=== PATIENT | male | born 1955 | race American Indian/Alaskan Native ===

== ENCOUNTER 2022-04-17 04:47 | Emergency (ER) | payer MEDICARE, OTHER ==
[2022-04-17] MEDS ORDERED: Sodium Chloride 0.9% 10 ML Syringe FLUSH PRN (04:51)
[2022-04-17] MEDS ORDERED: Sodium Chloride 0.9% 1,000 ML IV ONE ×2 (05:06→06:00)
[2022-04-17] MEDS ORDERED: Iopamidol 755 Mg/ML 100 ML Bottle IVPUSH ONE (05:26)
[2022-04-17 05:52] LABS: ANION GAP 13.9 mEq/L (7-13); CHLORIDE,CL 102 mmol/L (98-107); ESTIMATED GFR 88 mL/min (>=60); SODIUM,NA 137 mmol/L (136-145)
[2022-04-17] MEDS ORDERED: LORazepam 2 MG/ML SDV IVPUSH ONE (06:55)
[2022-04-17 09:36] LABS: O2 DELIVERY DEVICE NASAL CANNULA
[2022-04-17 09:37] LABS: ALLEN TEST PERFORMED
[2022-04-17 09:38] LABS: BASE EXCESS ARTERIAL -3 mmol/L ((-2)-(+3)); BICARBONATE,ARTERIAL 23.9 mmol/L (22-26); O2 SATURATION ARTERIAL 94 % (95-100); PCO2 ARTERIAL 49 mmHg (35-45); PO2 ARTERIAL 80 mmHg (70-100)
[2022-04-17] MEDS ORDERED: levETIRAcetam in NaCl (iso-os) 1,000 MG in Premix Bag 1 BAG IV ONE ×2 (09:49)
[2022-04-17 09:56] LABS: AMPHETAMINES,URINE NEGATIVE (NEGATIVE); BARBITURATES,URINE NEGATIVE (NEGATIVE); BENZODIAZEPINE,URINE NEGATIVE (NEGATIVE); MDMA (ECSTASY), URINE NEGATIVE (NEGATIVE); METHADONE,URINE NEGATIVE (NEGATIVE); METHAMPHETAMINES,URINE NEGATIVE (NEGATIVE); OPIATES,URINE NEGATIVE (NEGATIVE); OXYCODONE,URINE NEGATIVE (NEGATIVE); PHENCYCLIDINE,URINE NEGATIVE (NEGATIVE); TCA,URINE NEGATIVE (NEGATIVE)
== END 2022-04-17 11:00 | disposition left against medical advice (07) ==
LOC: DL.ED 04:47
DX: R56.9 Unspecified convulsions (principal); R09.02 Hypoxemia; M19.90 Unspecified osteoarthritis, unspecified site; Z20.822 Contact with and (suspected) exposure to COVID-19; Z79.899 Other long term (current) drug therapy; Z79.82 Long term (current) use of aspirin
CPT/HCPCS: 36415; 36600; 70450; 71260; 80053; 80305-QW; 80307; 81003; 82140; 82803; 82947; 83605; 83735; 83880; 84100; 84484; 85025; 85379; 86140; 87040; 93005; 93010; 96361; 96374; 99284; 99285-25; J2060; J3490; J7030; Q9967; U0002

== ENCOUNTER 2022-05-06 10:21 | Emergency (ER) | payer MEDICARE, OTHER ==
[2022-05-06] MEDS ORDERED: levETIRAcetam in NaCl (iso-os) 1,500 MG in Premix Bag 1 BAG IV ONE ×4 (10:22→10:26)
[2022-05-06] MEDS ORDERED: Sodium Chloride 0.9% 10 ML Syringe FLUSH PRN (10:25)
[2022-05-06] MEDS ORDERED: Midazolam 1 MG/ML 2 ML SDV IVPUSH ONE ×2 (10:26→10:27)
[2022-05-06] MEDS ORDERED: Sodium Chloride 0.9% 1,000 ML IV ONE ×2 (10:26→11:39)
[2022-05-06] MEDS ORDERED: Succinylcholine 200 MG/10 ML MDV IV ONE (10:32)
[2022-05-06] MEDS ORDERED: propofoL 100 ML IV ONE (10:32)
[2022-05-06] MEDS ORDERED: Midazolam 50 MG in Sodium Chloride 0.9% 50 ML IV ONE (10:32)
[2022-05-06] MEDS ORDERED: Midazolam 1 MG/ML 2 ML SDV IV ONE (10:32)
[2022-05-06] MEDS ORDERED: Rocuronium 100 MG/10 ML MDV IV ONE (10:32)
[2022-05-06] MEDS ORDERED: Propofol 200 MG/20 ML SDV IV ONE (10:32)
[2022-05-06] MEDS ORDERED: Iopamidol 612 MG/ML 100 ML Bottle IVPUSH ONE (10:35)
[2022-05-06] MEDS ORDERED: fentaNYL 100 MCG/2 ML SDV IV ONE (10:59)
[2022-05-06] MEDS ORDERED: fentaNYL 100 MCG/2 ML SDV ONE (10:59)
[2022-05-06 11:07] LABS: PTT,PARTIAL THROMBOPLSTIN TIME 21.4 SEC (22.0-34.0)
[2022-05-06 11:09] LABS: ANION GAP 16.7 mEq/L (7-13); CHLORIDE,CL 102 mmol/L (98-107); SODIUM,NA 137 mmol/L (136-145)
[2022-05-06 11:16] LABS: ESTIMATED GFR 74 mL/min (>=60)
[2022-05-06] MEDS ORDERED: Midazolam 1 MG/ML 2 ML SDV ONE (11:22)
[2022-05-06 11:41] LABS: AMPHETAMINES,URINE NEGATIVE (NEGATIVE); BARBITURATES,URINE NEGATIVE (NEGATIVE); BENZODIAZEPINE,URINE NEGATIVE (NEGATIVE); MDMA (ECSTASY), URINE NEGATIVE (NEGATIVE); METHADONE,URINE NEGATIVE (NEGATIVE); METHAMPHETAMINES,URINE NEGATIVE (NEGATIVE); OPIATES,URINE NEGATIVE (NEGATIVE); OXYCODONE,URINE NEGATIVE (NEGATIVE); PHENCYCLIDINE,URINE NEGATIVE (NEGATIVE); TCA,URINE NEGATIVE (NEGATIVE)
[2022-05-06 12:54] LABS: RESPIRATORY SYNCYTIAL VIR NAA NEGATIVE (NEGATIVE)
[2022-05-06 13:31] LABS: CORONAVIRUS COVID-19 NAA POSITIVE (NEGATIVE)
== END 2022-05-06 13:07 ==
LOC: DL.ED 10:21
DX: U07.1 COVID-19 (principal); R56.9 Unspecified convulsions; R41.0 Disorientation, unspecified; E78.00 Pure hypercholesterolemia, unspecified; E11.9 Type 2 diabetes mellitus without complications; Z86.16 Personal history of COVID-19
CPT/HCPCS: 0241U; 31500; 36415; 43752; 51702; 70470; 71045; 80053; 80305; 80307; 81001; 82140; 82550; 83605; 83735; 84484; 85025; 85610; 85730; 86140; 96374; 99285; J0330; J1953; J2250; J2704; J3010; Q9967

== ENCOUNTER 2022-06-27 12:14 | Emergency (ER) | payer MEDICARE, OTHER ==
[2022-06-27] MEDS ORDERED: Amoxicillin/Clavulanate K 875-125 MG Tab PO ONE ×2 (12:15→13:42)
[2022-06-27] MEDS ORDERED: Diphtheria,Pertussis(Acell),Tetanus Vaccine 0.5 ML Syringe IM ONE (13:41)
[2022-06-27] MEDS ORDERED: Bacitracin Oint 1 GM U/D Packet TOP ONE (13:42)
[2022-06-27] MEDS ORDERED: Amoxicillin/Clavulanate K 875-125 MG Tab ONE (13:52)
== END 2022-06-27 14:13 | disposition home or self-care (01) ==
LOC: DL.ED 12:14
DX: S61.254A Open bite of right ring finger without damage to nail, initial encounter (principal); S60.311A Abrasion of right thumb, initial encounter; S60.410A Abrasion of right index finger, initial encounter; E78.00 Pure hypercholesterolemia, unspecified; E11.9 Type 2 diabetes mellitus without complications; M19.90 Unspecified osteoarthritis, unspecified site; Z79.84 Long term (current) use of oral hypoglycemic drugs; Z79.82 Long term (current) use of aspirin; Z79.899 Other long term (current) drug therapy; Z86.16 Personal history of COVID-19; Z23 Encounter for immunization; W54.0XXA Bitten by dog, initial encounter
CPT/HCPCS: 90471; 90715; 99283; A9270

== ENCOUNTER 2025-04-12 12:25 | Emergency (ER) | payer MEDICARE, OTHER ==
[2025-04-12 12:42] LABS: PLATELET COUNT,PLT 327 10^3/uL (150-450); RED BLOOD CELL COUNT 3.92 10^6/uL (4.6-6.2); WHITE BLOOD CELL COUNT,WBC 19.2 10^3/uL (5.0-10.0)
[2025-04-12 12:44] LABS: BASOPHILS PERCENT AUTO 0.1 % (0.0-1.0); EOSINOPHILS PERCENT AUTO 0.0 % (1.0-3.0); LYMPHOCYTES PERCENT AUTO 6.0 % (20.5-50.1); MONOCYTES PERCENT AUTO 6.3 % (2-8); NEUTROPHILS PERCENT AUTO 87.6 % (42.2-75.2)
[2025-04-12 13:02] LABS: A/G RATIO 0.36; ALANINE AMINOTRANSFERASE,ALT 12.0 U/L (16-63); ASPARTATE AMNIOTRANSFERASE,AST 16.0 U/L (15-37); BILIRUBIN TOTAL 0.8 mg/dL (0.2-1.0); BLOOD UREA NITROGEN,BUN 22.0 mg/dL (7-18); CARBON DIOXIDE,CO2 25.0 mmol/L (21-32); CHLORIDE,CL 102.0 mmol/L (98-107); CREATININE 0.82 mg/dL (0.70-1.30); EST CRCL DRUG DOSING (CG) 81.1 mL/min; ESTIMATED GFR 95.0 mL/min (>=60); GLUCOSE RANDOM 110.0 mg/dL (70-99); LYMPHOCYTES PERCENT MAN 7 % (20-50); MONOCYTES PERCENT MAN 5 % (2-8); POTASSIUM,K 3.9 mmol/L (3.5-5.1); PROTEIN TOTAL,TP 7.2 g/dL (6.4-8.2); SEG NEUTROPHILS PERCENT MAN 88 % (42-75); SODIUM,NA 136.0 mmol/L (136-145)
== END 2025-04-12 16:18 ==
LOC: DL.ED 12:25
DX: T84.53XA Infection and inflammatory reaction due to internal right knee prosthesis, initial encounter (principal); E78.00 Pure hypercholesterolemia, unspecified; I10 Essential (primary) hypertension; E11.9 Type 2 diabetes mellitus without complications; E03.9 Hypothyroidism, unspecified; Z79.82 Long term (current) use of aspirin; Z79.899 Other long term (current) drug therapy; Z86.16 Personal history of COVID-19
CPT/HCPCS: 20610; 36415; 73030; 73562; 80053; 82947; 83735; 85025; 87040; 87070; 87077; 87205; 89051; 96374; 96375; 99285; J0690; J2003; J2270; J3373; J7040

== ENCOUNTER 2025-05-16 14:56 | Emergency (ER) | payer MEDICARE, OTHER ==
[2025-05-16] MEDS ORDERED: Sodium Chloride 0.9% 10 ML Syringe FLUSH PRN (15:19)
[2025-05-16 15:58] LABS: PLATELET COUNT,PLT 338 10^3/uL (150-450); RED BLOOD CELL COUNT 2.91 10^6/uL (4.6-6.2); WHITE BLOOD CELL COUNT,WBC 9.1 10^3/uL (5.0-10.0)
[2025-05-16 16:10] LABS: BASOPHILS PERCENT AUTO 0.1 % (0.0-1.0); EOSINOPHILS PERCENT AUTO 30.6 % (1.0-3.0); LYMPHOCYTES PERCENT AUTO 14.0 % (20.5-50.1); MONOCYTES PERCENT AUTO 7.0 % (2-8); NEUTROPHILS PERCENT AUTO 48.3 % (42.2-75.2)
[2025-05-16 16:19] LABS: BLOOD UREA NITROGEN,BUN 17.0 mg/dL (7-18); CARBON DIOXIDE,CO2 29.0 mmol/L (21-32); CHLORIDE,CL 103.0 mmol/L (98-107); CREATININE 0.95 mg/dL (0.70-1.30); EST CRCL DRUG DOSING (CG) 70.0 mL/min; GLUCOSE RANDOM 157.0 mg/dL (70-99); POTASSIUM,K 3.6 mmol/L (3.5-5.1); SODIUM,NA 138.0 mmol/L (136-145)
[2025-05-16 16:23] LABS: ESTIMATED GFR 86.0 mL/min (>=60)
[2025-05-16 16:24] LABS: BAND PERCENT MAN 2 %; EOSINOPHILS PERCENT MAN 26 % (1-3); LYMPHOCYTES PERCENT MAN 12 % (20-50); MONOCYTES PERCENT MAN 6 % (2-8); SEG NEUTROPHILS PERCENT MAN 54 % (42-75)
== END 2025-05-16 18:00 ==
LOC: DL.ED 14:56
DX: M96.89 Other intraoperative and postprocedural complications and disorders of the musculoskeletal system (principal); R60.0 Localized edema; E78.00 Pure hypercholesterolemia, unspecified; E11.9 Type 2 diabetes mellitus without complications; Z86.16 Personal history of COVID-19; Z79.82 Long term (current) use of aspirin; Z79.84 Long term (current) use of oral hypoglycemic drugs; Z79.899 Other long term (current) drug therapy; Y83.8 Other surgical procedures as the cause of abnormal reaction of the patient, or of later complication, without mention of misadventure at the time of the procedure
CPT/HCPCS: 36415; 73560-LT; 80048; 85025; 85651; 86140; 87040; 99284

== ENCOUNTER 2025-06-01 21:03 | Emergency (ER) | payer MEDICARE, OTHER ==
[2025-06-01] MEDS ORDERED: Bacitracin Oint 1 GM U/D Packet ONE (21:53)
== END 2025-06-01 22:10 ==
LOC: DL.ED 21:03
DX: T82.898A Other specified complication of vascular prosthetic devices, implants and grafts, initial encounter (principal); E78.00 Pure hypercholesterolemia, unspecified; E11.9 Type 2 diabetes mellitus without complications; Z79.82 Long term (current) use of aspirin; Z79.84 Long term (current) use of oral hypoglycemic drugs; Z86.16 Personal history of COVID-19; Z48.00 Encounter for change or removal of nonsurgical wound dressing
CPT/HCPCS: 99283